=== PATIENT | female | born 1945 | race Caucasian/White ===

== ENCOUNTER 2018-02-07 12:53 | Outpatient (CLI) | payer MEDICARE, OTHER ==
[2018-02-07] MEDS ORDERED: ISOVUE-370 76%-LOCM 1 ML ONE (13:28)
--- NOTE | 2018-02-07 17:43 | CT ---
CT THORAX WITH IV CONTRAST CT ABDOMEN AND PELVIS WITH IV CONTRAST 02/07/18 HISTORY: Ascending colon cancer with rising CEA. COMPARISON: PET CT examination on 06/07/15 as well as a prior CT abdomen and pelvis on 04/19/15. CT THORAX: There has been interval development of a new pulmonary nodule seen in the right upper lobe measuring 1.4 cm (image 26, series 3). No additional discrete pulmonary nodule or mass is seen. There is no ple ural effusion identified. Minimal atelectasis is present at the posterior right lung base. Vascular calcifications are seen in the thoracic aorta and involving the coronary arteries. No medias tinal. hilar or axillary lymphadenopathy is seen. CT ABDOMEN AND PELVIS: Postsurgical changes related to cholecystectomy are noted. There is a bone density lesion seen anterior to the junction of the mid portion and superior pole lef t kidney measuring 1.6 cm which is overall stable in size compared to study in 2015 and appears to ar ise from the left kidney. May represent a small renal cyst. The kidneys otherwise have normal CT columb[place] earance. The liver demonstrates normal sonographic appearance and no hepatic lesion or mass is appreciated. The spleen, pancreas, bilateral adrenal glands, and opacified small bowel demonstrate a normal CT columba earance. There are postsurgical changes related to partial right hemicolectomy. A few colonic diverticula are seen in the sigmoid colon. The uterus is not visualized, likely related to hysterectomy. The urinary bladder is decompressed and not well evaluated. There is prominent spray artifact in the pelvis secondary to the left total hip prosthesis. There is an enlarged aortocaval lymph node measuring 1.6 cm in short axis dimension which is just inf erior to the level of the left renal vein and at the level of the right renal vein. No additional enl arged lymph nodes are seen in the abdomen or pelvis. No free fluid or fluid collection is seen in the abdomen or pelvis. No lytic or sclerotic osseous lesions are identified. IMPRESSION: 1. Interval development of a right upper lobe pulmonary nodule as well as interval development o f an enlarged aortocaval lymph node worrisome for metastatic disease. 2. Remainder of the incidental findings are as described above. POS: [facility]
== END 2018-02-07 12:54 | disposition home or self-care (01) ==
LOC: BICCT 12:53
PROVIDERS: ATTEND Internal Medicine Medical Oncology
DX: C18.2 Malignant neoplasm of ascending colon (principal); R91.1 Solitary pulmonary nodule
CPT/HCPCS: 71260; 74177

== ENCOUNTER 2018-02-13 13:30 | Outpatient (CLI) | payer MEDICARE, OTHER ==
--- NOTE | 2018-02-13 16:59 | PET ---
PET CT FROM SKULL BASE TO MID THIGH: INDICATION: History of colorectal cancer and metastatic disease; new nodules identified within the lung and abdom en. COMPARISON: CT of the chest, abdomen, and pelvis from [facility] dated 02/07/[address] dated 06/07/15. RADIOPHARMACEUTICAL: 11.9 mCi F18-FDG IV. TECHNIQUE: PET CT images were obtained from the skull base to the mid thighs following introduction of a radioph armaceutical IV. CT images were obtained for attenuation correction purposes only. FINDINGS: The biodistribution for the examination appears acceptable. Head/Neck: No hypermetabolic lymphadenopathy or mass is seen within the head and neck region. Thorax: No hypermetabolic pulmonary nodule or pleural effusion is evident. The new pulmonary nodule seen with in the right upper lobe has a peak uptake of 0.99 and a mean uptake of 0.94. There are additional new appearing sub-4 mm pulmonary nodules within the left upper lobe and superior segment of the right lo wer lobe, not seen on the prior PET CT. No hypermetabolic lymphadenopathy is evident within the media stinal, hilar, or axillary regions. Abdomen/Pelvis: The enlarged aortocaval lymph node demonstrates no associated hypermetabolic uptake. The small nodule overlying the anterior left renal bed is stable to the prior PET CT evaluation with no associated hy permetabolic uptake. There is stable postprocedural change of a right hemicolectomy. No hypermetaboli c mass or lymphadenopathy is evident within the abdomen or pelvis. Skin/Osseous Structures: No hypermetabolic skin or osseous lesions identified. IMPRESSION: The new pulmonary nodule involving the right upper lobe, as well as scattered sub-4 mm pulmonary nodu les within the left upper lobe and right lower lobe demonstrate no associated hypermetabolic uptake. No hypermetabolic activity is seen involving the aortocaval lymph node seen within the abdomen nor t he nodule anterior to the left kidney. Findings can be seen with malignancies related to low FDG avid ity. Reactive lymphadenopathy and inflammatory pulmonary nodules are not entirely excluded. A short-t erm CT follow-up utilizing IV contrast of the chest/abdomen/pelvis recommended to document stability. POS: [facility]
== END 2018-02-13 13:31 | disposition home or self-care (01) ==
LOC: PET 13:30
PROVIDERS: ATTEND Internal Medicine Medical Oncology
DX: C18.2 Malignant neoplasm of ascending colon (principal); R91.8 Other nonspecific abnormal finding of lung field
CPT/HCPCS: 78815; A9552

== ENCOUNTER 2018-02-21 10:12 | Inpatient (IN) | payer MEDICARE, OTHER ==
[2018-02-21] MEDS ORDERED: EPINEPHrine 1 MG/ML AMP ONE (10:27)
[2018-02-21] MEDS ORDERED: EPINEPHrine 1 MG/10 ML Abboject SYRINGE ONE (10:27)
[2018-02-21] MEDS ORDERED: methylPREDNISolone Sod Succ/PF 125 MG/2 ML VIAL ONE (10:33)
[2018-02-21] MEDS ORDERED: diphenhydrAMINE 50 MG/ML VIAL ONE (10:36)
[2018-02-21] MEDS ORDERED: diphenhydrAMINE 50 MG/ML VIAL IVP SCH (10:45)
[2018-02-21] MEDS ORDERED: Ondansetron ODT 8 MG TAB ONE (11:34)
[2018-02-21] MEDS ORDERED: Ondansetron PF 4 MG/2 ML Vial ONE (11:49)
--- NOTE | 2018-02-21 11:50 | RAD ---
PORTABLE AP CHEST XRAY: DATE: 04/03/2018. HISTORY: Colon cancer. Dizziness. Post Code Green. COMPARISON: 05/12/[address] scan on 02/13/2018. FINDINGS: There is a pulmonary nodule seen in the right mid lung zone which was seen on the prior PET CT examin ation which has developed in the interim compared to the study in 2016. The previously noted right-s ided MediPort catheter has been removed. There is a patchy density seen at the left lung base which could be related to atelectasis, focal area of pneumonitis, or possibly aspiration. The lungs are ot herwise clear. Cardiac silhouette and pulmonary vasculature are within normal limits. Osseous struc tures appear intact. IMPRESSION: 1. Pulmonary nodule right mid lung zone seen on the recent PET CT exam. 2. Patchy density left lung base which could be related to atelectasis. However, focal pneumonia or aspiration is a possibility. Followup chest x-ray is recommended. POS: [facility]
[2018-02-21 12:48] LABS: Hemoglobin 17.6 g/dL (12.0-16.0); Mean Corpuscular Hemoglobin 29.2 pg (27.0-31.0); Mean Corpuscular Volume 91.2 fL (78.0-98.0); Platelet Count 231 thou/uL (130-400); RBC Distribution Width 12.2 % (11.5-14.5); Red Blood Cell (RBC) Count 6.04 mill/uL (4.20-5.40); White Blood Cell (WBC) Count 26.9 thou/uL (4.8-10.8)
[2018-02-21 12:59] LABS: ALT (SGPT) 35 U/L (8-55); AST (SGOT) 30 U/L (5-34); Albumin 3.5 g/dL (3.4-4.8); Alkaline Phosphatase 118 U/L (40-150); Anion Gap 17 mmol/L (10-20); BUN (Urea Nitrogen) 20 mg/dL (9.8-20.1); Bilirubin, Total 0.4 mg/dL (0.2-1.2); Calc. Creatinine Clearance 0 mL/min (70-130); Calcium 9.2 mg/dL (7.8-10.44); Carbon Dioxide 18 mmol/L (23-31); Chloride 109 mmol/L (98-107); Estimated GFR-MDRD 41; Glucose 244 mg/dL (83-110); Magnesium 1.9 mg/dL (1.6-2.6); Potassium 3.9 mmol/L (3.5-5.1); Protein, Total 6.5 g/dL (6.0-8.3); Sodium 140 mmol/L (136-145)
[2018-02-21 13:04] LABS: Troponin I Less than 0.010 ng/mL (< 0.028)
[2018-02-21 13:05] LABS: Band 27 % (5-11); Lymphocytes 9 % (21-51); MDiff Complete? YES; Neutrophil 59 % (42-75); RBC Morphology Normal; Reactive Lymphocytes 5 % (0-10)
[2018-02-21] MEDS ORDERED: Promethazine HCl 25 MG/ML VIAL ONE (13:13)
[2018-02-21] MEDS ORDERED: Piperacillin/Tazobactam 4.5 GM VIAL ONE (13:55)
[2018-02-21 17:38] LABS: Lactic Acid 2.9 mmol/L (0.5-2.2)
[2018-02-21] MEDS ORDERED: Ondansetron ODT 4 MG TAB PO PRN (17:56)
[2018-02-21] MEDS ORDERED: Ondansetron PF 4 MG/2 ML Vial IVP PRN (17:56)
[2018-02-21] MEDS ORDERED: Acetaminophen 325 MG TAB PO PRN (17:56)
[2018-02-21] MEDS ORDERED: EPINEPHrine 1 MG/ML AMP IM PRN (17:58)
[2018-02-21] MEDS ORDERED: Famotidine 20 MG TAB PO SCH (18:00)
[2018-02-21] MEDS ORDERED: predniSONE 20 MG TAB PO SCH (18:00)
[2018-02-21] MEDS ORDERED: hydrALAZINE 20 MG/ML VIAL SLOW IVP PRN (18:16)
[2018-02-21] MEDS: diphenhydrAMINE 25 MG CAP PO SCH (19:12)
[2018-02-21] MEDS: Sodium Chloride 0.9% 1,000 ML IV SCH (19:13)
--- NOTE | 2018-02-21 19:16 | HP ---
DATE OF ADMISSION: 02/21/2018 PRIMARY CARE PHYSICIAN: Dr. Brooke Chapa. PRIMARY ONCOLOGIST: Dr. Renteria. CHIEF COMPLAINT/REASON FOR ADMISSION: Code green during the MRI. HISTORY OF PRESENT ILLNESS: Patient is a 72-year-old female with colon cancer, status post right hem icolectomy in 2014, presented to the emergency room after a code green during the MRI. The patient underwent a CT scan of the chest, abdomen, and pelvis earlier this month that was consist ent with right upper lobe pulmonary nodules along with enlarged aortocaval lymph nodes worrisome for metastatic disease. Dr. Renteria recommended MRI with contrast to rule out intracranial metastasis. However, patient had anaphylactic reaction during the MRI. The patient had sudden onset of burning sensation to her face and had nausea, vomiting, and several episodes of diarrhea. The MRI staff then attempted to assist her to the bathroom where she had a syncopal episode. She also was short of tiny ath and had some swelling of her face as well. Her blood pressure during the episode was low. She r eceived epinephrine, IV fluids, vancomycin, Zosyn, 125 Solu-Medrol in the emergency room. She felt g enerally weak and fatigued. EKG showed sinus tachycardia with some nonspecific ST-T wave changes. S he was diaphoretic and pale in the emergency room. PAST MEDICAL HISTORY: 1. Hypertension. 2. Colon cancer as discussed above. 3. Gastroesophageal reflux disease. 4. History of pulmonary embolism that developed 10 days after hip replacement. 5. Hyperlipidemia. 6. History of gastrointestinal bleeding. 7. Rheumatoid arthritis followed by Dr. Hernandez. 8. History of shingles. PAST SURGICAL HISTORY: Hysterectomy for menorrhagia at age of 29, cholecystectomy at age of 41, left hip replacement in 2013, laparoscopic partial right hemicolectomy in 04/2015, colonoscopy in 2012 an d 2014, MediPort placement, repeat colonoscopy in 2016. ALLERGIES: Patient is now allergic to GADOLINIUM CONTRAST. CURRENT HOME MEDICATIONS: Per primary care office record: Losartan 50 mg daily if her blood pressur e is more than 140, lovastatin 40 mg daily, Protonix 40 mg daily, Rituxan per Dr. Hernandez. SOCIAL HISTORY: Patient currently lives at home with her family. She is a nonsmoker. Drinks alcoho l socially. No drug use. She makes her own decision with the help of her family. FAMILY HISTORY: Father with hypertension. Mother with stroke, breast cancer runs in her family. REVIEW OF SYSTEMS: The following complete review of systems was negative, unless otherwise mentioned in the HPI or below: Constitutional: Weight loss or gain, ability to conduct usual activities. Sk in: Rash, itching. Eyes: Double vision, pain. ENT/Mouth: Nose bleeding, neck stiffness, pain, te nderness. Cardiovascular: Palpitations, dyspnea on exertion, orthopnea. Respiratory: Shortness of breath, wheezing, cough, hemoptysis, fever or night sweats. Gastrointestinal: Poor appetite, abdom inal pain, heartburn, nausea, vomiting, constipation, or diarrhea. Genitourinary: Urgency, frequenc y, dysuria, nocturia. Musculoskeletal: Pain, swelling. Neurologic/Psychiatric: Anxiety, depressio n. Allergy/Immunologic: Skin rash, bleeding tendency. PHYSICAL EXAMINATION: VITAL SIGNS: In the emergency room showed temperature 97.8, respiration of 31 on admission with puls e rate of 113 and blood pressure of 94/68. GENERAL: A 72-year-old female in no apparent distress, feels better. HEENT: Head atraumatic, normocephalic. Sclerae are anicteric. Moist mucous membrane, no oral lesio n. There was no stridor or tongue swelling. NECK: Supple, no JVD, no carotid bruit. LUNGS: Symmetrical with rales at the right base. No wheezing. HEART: S1, S2 present. Regular rate and rhythm. No rubs or gallops appreciated. ABDOMEN: Soft, nontender, bowel sounds present. EXTREMITIES: No edema or calf tenderness. NEUROLOGIC: Grossly nonfocal, moves all four extremities. PSYCHIATRY: Alert, awake, oriented x3. SKIN: Warm and dry. LYMPH NODES: No palpable lymph nodes in the neck. PERIPHERAL VASCULAR: Radial pulses palpable bilaterally. MUSCULOSKELETAL: No joint swelling or tenderness. LABORATORY FINDINGS: CBC showed WBC 26.9, hemoglobin 17.6, hematocrit 55.1, platelet count 231, 27% bandemia. Chemistry showed sodium 140, potassium 3.9, chloride 109, bicarbonate 18, BUN 20, creatini ne 1.29, glucose 244. Lactic acid 4.7. EKG by my review as discussed above. Chest x-ray by my revi ew showed some questionable bibasilar infiltrate. EKG by my review as discussed above. IMPRESSION: 1. Anaphylactic reaction to gadolinium responded to epinephrine H1 and H2 blockers. 2. Sepsis with acute organ dysfunction, probably secondary to aspiration pneumonia. 3. Hypertension. 4. Colon cancer. 5. Obesity with a BMI of 39. 6. Hyperglycemia, rule out diabetes mellitus type 2. 7. Hyperlipidemia. 8. History of pulmonary embolism. 9. History of gastrointestinal bleeding. 10. Gastroesophageal reflux disease. 11. Rheumatoid arthritis. 12. Lactic acidosis. 13. Acute kidney injury on chronic kidney disease stage 2. PLAN: The patient will be monitored in the telemetry unit. We will continue H1 and H2 blockers. Co ntinue steroids. Nebulizer treatment as needed. Zosyn 3.375 grams q.6 hourly. Gentle intravenous h ydration. A.m. labs. Epinephrine p.r.n. We will check hemoglobin A1c. Repeat chest x-ray after 24 hours. Plan of care was discussed with the patient in detail. She stated understanding.
[2018-02-21 19:22] LABS: Troponin I 0.044 ng/mL (< 0.028)
[2018-02-21] MEDS: Piperacillin/Tazobactam 3.375 GM in Sodium Chloride 0.9% 100 ML IVPB SCH (20:33)
[2018-02-22] MEDS: Piperacillin/Tazobactam 3.375 GM in Sodium Chloride 0.9% 100 ML IVPB SCH ×4 (02:02→20:20)
[2018-02-22] MEDS: diphenhydrAMINE 25 MG CAP PO SCH ×3 (02:02→17:30)
[2018-02-22] MEDS: Sodium Chloride 0.9% 1,000 ML IV SCH ×2 (03:39→20:19)
[2018-02-22 05:27] LABS: Lactic Acid 1.5 mmol/L (0.5-2.2)
[2018-02-22 05:34] LABS: Hemoglobin A1c 5.3 % (4.0-6.0)
[2018-02-22 05:35] LABS: Anion Gap 12 mmol/L (10-20); BUN (Urea Nitrogen) 33 mg/dL (9.8-20.1); Calc. Creatinine Clearance 50 mL/min (70-130); Calcium 8.3 mg/dL (7.8-10.44); Carbon Dioxide 19 mmol/L (23-31); Chloride 111 mmol/L (98-107); Estimated GFR-MDRD 28; Glucose 154 mg/dL (83-110); Magnesium 1.6 mg/dL (1.6-2.6); Potassium 4.1 mmol/L (3.5-5.1); Sodium 138 mmol/L (136-145)
[2018-02-22 05:36] LABS: Troponin I 0.081 ng/mL (< 0.028)
[2018-02-22 05:37] LABS: #Monocytes 0.8 thou/uL (0.11-0.59); #Neutrophils 17.3 thou/uL (1.40-6.50); %Basophils 0.1 % (0.0-1.0); %Eosinophils 0.2 % (0.0-10.0); %Lymphocytes 5.2 % (21.0-51.0); %Neutrophils 90.6 % (42.0-75.0); Mean Corpuscular Hemoglobin 29.7 pg (27.0-31.0); Mean Corpuscular Volume 90.2 fL (78.0-98.0); Mean Platelet Volume 9.3 fL (7.4-10.4); Platelet Count 165 thou/uL (130-400); Red Blood Cell (RBC) Count 4.37 mill/uL (4.20-5.40)
[2018-02-22] MEDS: predniSONE 20 MG TAB PO SCH (08:34)
[2018-02-22] MEDS: Saccharomyces boulardii 250 MG CAP PO SCH (08:34)
[2018-02-22] MEDS: Famotidine 20 MG TAB PO SCH ×2 (08:35→20:20)
[2018-02-22] MEDS ORDERED: Enoxaparin Sodium 40 MG/0.4 ML SYRINGE SC SCH (09:00)
[2018-02-22 13:57] VITALS: BMI 39.9
--- NOTE | 2018-02-22 19:34 | PDOC.PN ---
- Subjective Encounter Start Date: 02/22/18 Encounter Start Time: 14:00 Patient seen and examined for Sepsis/Anaphylaxis. No CP/wheezing/ rash. Feels gen weak. No other complaints. No overnight events - Objective Resuscitation Status: Resuscitation Status FULL:Full Resuscitation MAR Reviewed: Yes Vital Signs & Weight: Vital Signs (12 hours) Temp Pulse Resp BP Pulse Ox 02/22/18 18:06 98 F 67 16 118/59 L 97 02/22/18 15:15 98.3 F 70 16 142/63 H 97 02/22/18 11:37 98.2 F 67 16 128/60 96 02/22/18 07:45 97.9 F 69 18 136/69 95 Weight Admit Weight 247 lb 4.8 oz Weight 247 lb 4.8 oz I&O: 02/21/18 02/22/18 02/23/18 06:59 06:59 06:59 Intake Total 1320 1608 Output Total 250 400 Balance 1070 1208 Result Diagrams: 02/22/18 04:36 02/22/18 04:36 EKG Reviewed by me: Yes (Tele SR) Phys Exam - Physical Examination Constitutional: NAD Respiratory: no wheezing, no rhonchi Scat rales at bases Cardiovascular: RRR, no rub Gastrointestinal: soft, positive bowel sounds Musculoskeletal: no edema Neurological: moves all 4 limbs Dx/Plan - Plan DVT proph w/SCDs IMPRESSION: 1. Anaphylactic reaction to gadolinium responded to epinephrine H1 and H2 blockers. 2. Sepsis with acute organ dysfunction, probably secondary to aspiration pneumonia. 3. Hypertension. 4. Acute kidney injury on chronic kidney disease stage 2. 5. Obesity with a BMI of 39. 6. Hyperglycemia - stress induced. A1c normal. 7. Hyperlipidemia. 8. History of pulmonary embolism. 9. History of gastrointestinal bleeding. 10. Gastroesophageal reflux disease. 11. Rheumatoid arthritis. 12. Lactic acidosis. 13. Colon cancer. PLAN: Cont Zosyn Cont Prednisone with antihistamine Repeat CXR in AM Cont other meds as below Resume Amlodipine BEAN on hold due to BIANCA AM labs Review of Systems - Review of Systems Respiratory: negative: Cough, Dry, Shortness of Breath, Hemoptysis, SOB with Excertion, Pleuritic Pain, Sputum, Wheezing Cardiovascular: negative: chest pain, palpitations, orthopnea, paroxysmal nocturnal dyspnea, edema, light headedness, other - Medications/Allergies Allergies/Adverse Reactions: Allergies Allergy/AdvReac Type Severity Reaction Status Date / Time iodine Allergy Severe Anaphylaxis Verified 02/21/18 23:02 Iodine and Iodide Containing Allergy Severe Anaphylaxis Verified 02/21/18 23:02 Produc Gadolinium-Containing AdvReac Intermediate Nausea Verified 02/21/18 20:28 Contrast Medi Medications: Current Medications Acetaminophen (Tylenol) 650 mg PO Q4H PRN PRN Reason: Headache/Fever/Mild Pain (1-3) Albuterol/Ipratropium (Duoneb) 3 ml NEB [id number] PRN PRN Reason: SOB &/or Wheezing Amlodipine Besylate (Norvasc) 5 mg PO DAILY [facility] Diphenhydramine HCl (Benadryl) 25 mg PO Q8H [facility] Last Admin: 02/22/18 17:30 Dose: 25 mg Epinephrine (Epinephrine) 0.3 mg IM Q5M PRN PRN Reason: anaphylaxis Famotidine (Pepcid) 20 mg PO BID [facility] Last Admin: 02/22/18 08:35 Dose: 20 mg Hydralazine HCl (Apresoline) 10 mg SLOW IVP Q4H PRN PRN Reason: SBP Greater Than 180 Sodium Chloride (Normal Saline 0.9%) 1,000 mls @ 70 mls/hr IV .[id number] [facility] Last Admin: 02/22/18 03:39 Dose: 1,000 mls Piperacillin Sod/Tazobactam (Sod 3.375 gm/ Sodium Chloride) 100 mls @ 200 mls/ hr IVPB 0200,0800,1400,2000 [facility] Last Admin: 02/22/18 14:08 Dose: 100 mls Miscellaneous Medication (Pharmacy To Dose) 1 each IVPB ONE PRN PRN Reason: Pharmacy to dose Non-Formulary Medication (Lovastatin [Lovastatin]) 40 mg PO QAM [facility] Ondansetron HCl (Zofran Odt) 4 mg PO Q6H PRN PRN Reason: Nausea/Vomiting Ondansetron HCl (Zofran) 4 mg IVP Q6H PRN PRN Reason: Nausea/Vomiting Prednisone (Prednisone) 20 mg PO QAM-WM [facility] Last Admin: 02/22/18 08:34 Dose: 20 mg Saccharomyces Boulardii (Florastor) 250 mg PO DAILY [facility] Last Admin: 02/22/18 08:34 Dose: 250 mg Sodium Chloride (Flush - Normal Saline) 10 ml IVF Q12HR [facility] Last Admin: 02/22/18 08:35 Dose: Not Given Sodium Chloride (Flush - Normal Saline) 10 ml IVF PRN PRN PRN Reason: Saline Flush
[2018-02-23] MEDS: diphenhydrAMINE 25 MG CAP PO SCH ×2 (02:27→09:25)
[2018-02-23] MEDS: Piperacillin/Tazobactam 3.375 GM in Sodium Chloride 0.9% 100 ML IVPB SCH ×2 (02:28→08:31)
[2018-02-23 04:24] LABS: #Lymphocytes 1.4 thou/uL (1.20-3.40); #Monocytes 1.1 thou/uL (0.11-0.59); #Neutrophils 12.3 thou/uL (1.40-6.50); %Eosinophils 0.2 % (0.0-10.0); %Lymphocytes 9.2 % (21.0-51.0); %Monocytes 7.6 % (0.0-10.0); %Neutrophils 83.1 % (42.0-75.0); Hemoglobin 10.5 g/dL (12.0-16.0); Mean Corpuscular HGB CONC 33.5 g/dL (32.0-36.0); Mean Corpuscular Hemoglobin 30.3 pg (27.0-31.0); Mean Corpuscular Volume 90.5 fL (78.0-98.0); Mean Platelet Volume 8.6 fL (7.4-10.4); Platelet Count 148 thou/uL (130-400); RBC Distribution Width 11.9 % (11.5-14.5); Red Blood Cell (RBC) Count 3.47 mill/uL (4.20-5.40); White Blood Cell (WBC) Count 14.9 thou/uL (4.8-10.8)
[2018-02-23 04:37] LABS: Anion Gap 7 mmol/L (10-20); BUN (Urea Nitrogen) 31 mg/dL (9.8-20.1); Calc. Creatinine Clearance 66 mL/min (70-130); Calcium 8.7 mg/dL (7.8-10.44); Carbon Dioxide 24 mmol/L (23-31); Chloride 115 mmol/L (98-107); Estimated GFR-MDRD 38; Glucose 102 mg/dL (83-110); Magnesium 1.9 mg/dL (1.6-2.6); Potassium 3.9 mmol/L (3.5-5.1); Sodium 142 mmol/L (136-145)
--- NOTE | 2018-02-23 08:30 | EKG ---
Test Reason : Blood Pressure : / mmHG Vent. Rate : 117 BPM Atrial Rate : 117 BPM P-R Int : 148 ms QRS Dur : 080 ms QT Int : 330 ms P-R-T Axes : 056 023 056 degrees QTc Int : 460 ms Sinus tachycardia Nonspecific ST abnormality Abnormal ECG Confirmed by CYNDI BAR ([id number]) on 02/23/2018 8:29:48 AM Referred By: Confirmed By:CYNDI BAR
[2018-02-23] MEDS: predniSONE 20 MG TAB PO SCH (08:31)
[2018-02-23] MEDS: Famotidine 20 MG TAB PO SCH (08:31)
[2018-02-23] MEDS: Saccharomyces boulardii 250 MG CAP PO SCH (08:31)
[2018-02-23] MEDS ORDERED: Lovastatin 20 MG TAB PO SCH (09:00)
[2018-02-23] MEDS ORDERED: Amlodipine 5 MG TAB PO SCH (09:00)
[2018-02-23 11:58] VITALS: BP 137/64; TEMP 98.1
--- NOTE | 2018-02-23 12:04 | RAD ---
TWO VIEW CHEST SERIES: CLINICAL HISTORY: Aspiration pneumonia. COMPARISON: Reference is made to 02/21/2018 exam. FINDINGS: There is a stable nodule of the right mid lung. The chest is otherwise similar in appearance. IMPRESSION: 1. Persistence of a previously demonstrated left basilar opacity which may be on the basis of pneumo nitis. 2. Redemonstration of right pulmonary nodule. POS: [facility]
[2018-02-23] MEDS ORDERED: Amoxicillin/Potassium Clav 875 MG TAB PO SCH (21:00)
--- NOTE | 2018-02-24 10:50 | DIS ---
DATE OF DISCHARGE: 02/23/2018 DISCHARGE DISPOSITION: Home. FOLLOWUP: Follow up with primary care physician, Brooke Chapa, in 1 week. Chest x-ray after 4-6 weeks. Primary care physician advised to follow. The patient was seen and examined on the day of discharge, denies any new complaints, no chest pain, shortness of breath or palpitations. BRIEF HOSPITAL COURSE: The patient is a 72-year-old female with colon cancer, status post right jonathan colectomy in 2014, currently followed by Dr. Renteria presented to the emergency room after an anaphy lactic reaction during the MRI. The patient received H1 blockers, H2 blockers as well as epinephrine intramuscularly after which her blood pressure improved. Please refer to the history and physical f or further details. The patient was admitted to the hospital with a diagnosis of anaphylactic reaction secondary to Gadol inium that responded to epinephrine H1 and H2 sandie. She also had nausea and vomiting along with a ltered mentation during the above episode. She probably developed aspiration pneumonitis. Her WBC c ount on admission was 27,000 with 27% bandemia. Chest x-ray showed patchy density at the left base. She was started on Zosyn, that has been changed to Augmentin. Blood culture 1 of 2 shows gram posit brooke migdalia, probably contamination. Primary care physician advised to follow up on the final cultures. Repeat chest x-ray on the day of discharge did not show any new changes. She also had mild acute ki dney injury, probably secondary to hypoperfusion that has improved on the day of discharge. She was advised to hold losartan/HCTZ for 1 more day. She appears stable for discharge. FINAL DIAGNOSES: 1. Anaphylactic reaction to the GADOLINIUM. 2. Sepsis with acute organ dysfunction, probably secondary to aspiration pneumonia. 3. Hypertension. 4. Acute kidney injury on chronic kidney disease stage 2, improved. Creatinine on the day of discha rge is 1.36. 5. Morbid obesity with a BMI of 40.7. 6. Hyperglycemia, probably stress induced. A1c was normal. 7. Hyperlipidemia. 8. History of pulmonary embolism. 9. Lung nodule. 10. History of gastrointestinal bleeding. 11. Gastroesophageal reflux disease. 12. Rheumatoid arthritis. 13. Lactic acidosis, improved. 14. Colon cancer. 15. Elevated troponin's probably secondary to demand ischemia. Plan of care was discussed with the patient in detail. She stated understanding. An echocardiogram as outpatient would be beneficial Primary care physician is advised to follow.
== END 2018-02-23 13:55 | disposition home or self-care (01) | DRG 915 ==
LOC: ERS 10:12 → 2NO 13:36 → ONC 02-22 17:49
PROVIDERS: ADMIT Internal Medicine; ATTEND Internal Medicine
DX: T88.6XXA Anaphylactic reaction due to adverse effect of correct drug or medicament properly administered, initial encounter (principal); A41.9 Sepsis, unspecified organism; J69.0 Pneumonitis due to inhalation of food and vomit; C18.9 Malignant neoplasm of colon, unspecified; Z68.41 Body mass index [BMI] 40.0-44.9, adult; N17.9 Acute kidney failure, unspecified; E87.2 Acidosis; T50.995A Adverse effect of other drugs, medicaments and biological substances, initial encounter; Y65.8 Other specified misadventures during surgical and medical care; Y78.8 Miscellaneous radiological devices associated with adverse incidents, not elsewhere classified; Y92.238 Other place in hospital as the place of occurrence of the external cause; I10 Essential (primary) hypertension; K21.9 Gastro-esophageal reflux disease without esophagitis; Z86.711 Personal history of pulmonary embolism; E78.5 Hyperlipidemia, unspecified; M06.9 Rheumatoid arthritis, unspecified; B02.9 Zoster without complications; E66.9 Obesity, unspecified; I12.9 Hypertensive chronic kidney disease with stage 1 through stage 4 chronic kidney disease, or unspecified chronic kidney disease; N18.2 Chronic kidney disease, stage 2 (mild)
CPT/HCPCS: 36415; 71045; 71046; 80048; 80053; 83036; 83605; 83735; 84484; 85025; 87040; 93005; 96361; 96365; 96367; 96372; 96375; J0171; J1200; J1650; J2405; J2543; J2550; J2930; J3370; J7050; J7506

== ENCOUNTER 2018-03-10 13:09 | Outpatient (CLI) | payer MEDICARE, OTHER ==
[2018-03-10 14:11] LABS: #Eosinphils 0.1 thou/uL (0.0-0.7); #Lymphocytes 1.9 thou/uL (1.20-3.40); #Monocytes 0.8 thou/uL (0.11-0.59); #Neutrophils 6.3 thou/uL (1.40-6.50); %Basophils 0.3 % (0.0-1.0); %Eosinophils 1.4 % (0.0-10.0); %Lymphocytes 20.9 % (21.0-51.0); %Monocytes 8.4 % (0.0-10.0); %Neutrophils 69.1 % (42.0-75.0); Hemoglobin 12.1 g/dL (12.0-16.0); Mean Corpuscular Volume 90.7 fL (78.0-98.0); Mean Platelet Volume 8.6 fL (7.4-10.4); Platelet Count 262 thou/uL (130-400); RBC Distribution Width 11.6 % (11.5-14.5); Red Blood Cell (RBC) Count 4.15 mill/uL (4.20-5.40); White Blood Cell (WBC) Count 9.2 thou/uL (4.8-10.8)
[2018-03-10 14:37] LABS: Anion Gap 9 mmol/L (10-20); BUN (Urea Nitrogen) 22 mg/dL (9.8-20.1); Calc. Creatinine Clearance 0 mL/min (70-130); Carbon Dioxide 31 mmol/L (23-31); Chloride 101 mmol/L (98-107); Estimated GFR-MDRD 30; Glucose 126 mg/dL (83-110); Potassium 3.7 mmol/L (3.5-5.1); Sodium 137 mmol/L (136-145)
--- NOTE | 2018-03-10 17:00 | EKG ---
Test Reason : Blood Pressure : / mmHG Vent. Rate : 058 BPM Atrial Rate : 058 BPM P-R Int : 188 ms QRS Dur : 088 ms QT Int : 422 ms P-R-T Axes : -09 006 054 degrees QTc Int : 414 ms Poor data quality, interpretation may be adversely affected Sinus bradycardia Low voltage QRS Borderline ECG When compared with ECG of 21-FEB-2018 10:16, Vent. rate has decreased BY 59 BPM Non-specific change in ST segment in Inferior leads Confirmed by DR. Layla KABA ([id number]) on 03/10/2018 5:00:23 PM Referred By: MARIELENA Confirmed By:DR. Layla KABA
== END 2018-03-10 13:10 | disposition home or self-care (01) ==
LOC: LABBT 13:09
PROVIDERS: ATTEND Specialist
DX: Z01.818 Encounter for other preprocedural examination (principal); C18.9 Malignant neoplasm of colon, unspecified; C77.1 Secondary and unspecified malignant neoplasm of intrathoracic lymph nodes; R00.1 Bradycardia, unspecified
CPT/HCPCS: 80048; 85025; 93005; 93010

== ENCOUNTER 2018-03-11 10:19 | Day surgery (SDC) | payer MEDICARE, OTHER ==
[2018-03-11] MEDS ORDERED: Ketorolac Tromethamine 30 MG/ML VIAL ONE (10:56)
[2018-03-11] MEDS ORDERED: Isosulfan Blue 50 MG/5 ML VIAL ONE (12:56)
[2018-03-11] MEDS ORDERED: Bupivacaine/Epinephrine 0.25% 30 ML VIAL ONE ×2 (12:56→15:36)
[2018-03-11] MEDS ORDERED: Lidocaine 2% PF 5 ML VIAL ONE (12:56)
[2018-03-11] MEDS ORDERED: CEFAZOLIN 2 GM/50 ML BAG ONE (14:00)
[2018-03-11] MEDS ORDERED: Lidocaine 1% (PF) 30 ML VIAL ONE (15:36)
[2018-03-11] MEDS ORDERED: Fentanyl 100 MCG/2 ML VIAL ONE (15:45)
[2018-03-11] MEDS ORDERED: Lidocaine 1% PF 5 ML VIAL ONE (16:13)
--- NOTE | 2018-03-11 18:24 | RAD ---
PORTABLE CHEST ONE VIEW: 03/11/18 HISTORY: 72-year-old female with history of post Mediport insertion. Left subclavian catheter and injection port are placed. No pneumothorax or pleural effusion. Approxim ately 1.4 cm diameter nodular overlying the right mid lung zone. IMPRESSION: No pneumothorax or pleural effusion following subclavian catheter and Mediport placement. 1.4 cm diam eter stable appearing right mid lung nodule since 02/23/18. POS: [facility]
--- NOTE | 2018-03-12 14:48 | OP ---
DATE OF OPERATION: 03/11/2018 PREOPERATIVE DIAGNOSIS: Metastatic colon cancer. POSTOPERATIVE DIAGNOSIS: Metastatic colon cancer. OPERATION PERFORMED: Placement of left subclavian standard size power compatible MediPort. SURGEON: Hero Fabian M.D. ANESTHESIA: Total intravenous anesthesia with local using 0.25% Marcaine with epinephrine. INDICATIONS: The patient is a 72-year-old obese white female. She had previously undergone surgical treatment of colon cancer and had a prior right subclavian MediPort. She was recently found to have metastatic colon cancer and additional chemotherapy is necessary. She returns at this time for plac ement of another MediPort. I have recommended placement in the left subclavian location. DESCRIPTION OF OPERATION: Informed consent was obtained. The patient was taken to the operating chester m where total intravenous anesthesia was obtained with the patient in supine position. Left periclav icular area was prepped with ChloraPrep and draped in sterile fashion. Local anesthetic was infiltra aylin and a large gauge needle was passed under the clavicle in the subclavian vein. Guidewire was pas sed through the needle and fluoroscopically confirmed to enter the superior vena cava. Additional lo vasyl anesthetic was infiltrated and transverse incision was created based on needle insertion site. A subcutaneous pocket was dissected inferiorly. Introducer dilator was passed over the guidewire unde r fluoroscopic guidance. The guidewire and dilator were removed, and the catheter was passed through the introducer. The tip of the catheter was positioned at the atriocaval junction and the catheter was trimmed to the appropriate length and secured to the locking hub of the MediPort. The port was t hen placed in the subcutaneous pocket where it was secured to the pectoral fascia with 2 interrupted sutures of 3-0 Prolene. The incision was then closed in layers with 3-0 and 4-0 Monocryl. Additiona l local anesthetic was infiltrated. The port was cannulated with a Valenzuela needle and it aspirated blo od freely and was flushed with heparinized saline. Dermabond was placed externally on the skin incis ion. There were no complications. Blood loss was negligible. The patient tolerated the procedure w ell and was taken to recovery room in stable condition. FINDINGS: The patient had typical anatomy. Her port was placed uneventfully and fluoroscopically co nfirmed during and after placement. A standard size port was selected and it was placed in the left subclavian vein. There were no complications, essentially no blood loss. The patient tolerated the procedure well and was taken to recovery room in stable condition.
== END 2018-03-11 17:35 | disposition home or self-care (01) ==
LOC: SDC 10:19
PROVIDERS: ATTEND Specialist
PROC: 0JH63WZ Insertion of Totally Implantable Vascular Access Device into Chest Subcutaneous Tissue and Fascia, Percutaneous Approach (ICD-10-PCS; principal; 2018-03-11)
DX: C18.9 Malignant neoplasm of colon, unspecified (principal); C77.1 Secondary and unspecified malignant neoplasm of intrathoracic lymph nodes; I10 Essential (primary) hypertension; E78.5 Hyperlipidemia, unspecified; K21.9 Gastro-esophageal reflux disease without esophagitis; M06.9 Rheumatoid arthritis, unspecified; E66.9 Obesity, unspecified; Z68.38 Body mass index [BMI] 38.0-38.9, adult; Z86.711 Personal history of pulmonary embolism; Z79.52 Long term (current) use of systemic steroids; Z79.899 Other long term (current) drug therapy; Z91.041 Radiographic dye allergy status; Z90.49 Acquired absence of other specified parts of digestive tract
CPT/HCPCS: 36561; 71045; 76000; C1788; Q9968; J0131; J1642; J1885; J2001; J3010

== ENCOUNTER 2018-05-22 13:04 | Emergency (ER) | payer MEDICARE, OTHER ==
[2018-05-22 14:37] LABS: #Basophils 0.1 thou/uL (0.0-0.2); #Eosinphils 0.1 thou/uL (0.0-0.7); #Lymphocytes 1.9 thou/uL (1.20-3.40); #Neutrophils 6.3 thou/uL (1.40-6.50); %Basophils 0.9 % (0.0-1.0); %Eosinophils 1.3 % (0.0-10.0); %Lymphocytes 19.9 % (21.0-51.0); %Monocytes 10.4 % (0.0-10.0); %Neutrophils 67.5 % (42.0-75.0); Hemoglobin 12.3 g/dL (12.0-16.0); Mean Corpuscular HGB CONC 31.5 g/dL (32.0-36.0); Mean Corpuscular Hemoglobin 27.8 pg (27.0-31.0); Mean Corpuscular Volume 88.2 fL (78.0-98.0); Mean Platelet Volume 8.1 fL (7.4-10.4); Platelet Count 297 thou/uL (130-400); RBC Distribution Width 11.8 % (11.5-14.5); Red Blood Cell (RBC) Count 4.44 mill/uL (4.20-5.40); White Blood Cell (WBC) Count 9.4 thou/uL (4.8-10.8)
[2018-05-22 14:58] LABS: ALT (SGPT) 19 U/L (8-55); AST (SGOT) 20 U/L (5-34); Albumin 4.2 g/dL (3.4-4.8); Alkaline Phosphatase 84 U/L (40-150); Anion Gap 16 mmol/L (10-20); BUN (Urea Nitrogen) 8 mg/dL (9.8-20.1); Bilirubin, Total 0.3 mg/dL (0.2-1.2); Calc. Creatinine Clearance 0 mL/min (70-130); Calcium 9.9 mg/dL (7.8-10.44); Carbon Dioxide 22 mmol/L (23-31); Chloride 106 mmol/L (98-107); Estimated GFR-MDRD 56; Glucose 106 mg/dL (83-110); Potassium 3.5 mmol/L (3.5-5.1); Protein, Total 7.2 g/dL (6.0-8.3); Sodium 140 mmol/L (136-145)
== END 2018-05-22 15:47 | disposition left against medical advice (07) ==
LOC: ERS 13:04
DX: Z53.21 Procedure and treatment not carried out due to patient leaving prior to being seen by health care provider (principal)
CPT/HCPCS: 36415; 80053; 85025

== ENCOUNTER 2018-08-12 08:42 | Outpatient (CLI) | payer MEDICARE, OTHER ==
--- NOTE | 2018-08-12 10:11 | CT ---
CT Chest Abd Pelvis W Con History: [Colon cancer. Metastatic disease.] Comparison: CT chest abdomen and pelvis February 2018 Findings: The right upper lobe pulmonary nodule now measures 15-16 mm, previously 14 mm, similar give n the difference in slice selection. There is a 3 mm nodule within the right middle lobe axial image 29, unchanged. There is a 3 mm nodule left lower lobe axial image 26, unchanged. 3 mm nodule left lower lobe axial image 25, unchanged. 3 to 4 mm nodule medial basal left lower lobe axial image 28, unchanged. No new suspicious pulmonary no dule. 3 to 4 mm nodule anterior segment left upper lobe, unchanged. No effusion. No pneumothorax. No mediastinal adenopathy. No pericardial effusion. The thyroid is unremarkable. The axillae are without adenopathy. The spleen is unremarkable. Liver is unremarkable. Prior cholecystectomy. There is a hypodense aortoc aval lymph nodes axial image 68 which measures 13 mm in short axis, unchanged. There are no dilated loops of large or small bowel. No free intraperitoneal gas or fluid. No new retr operitoneal lymph nodes. Hepatic hypodensity, exophytic, interpolar anterior cortex left kidney is un changed. Adrenal glands are normal. Pancreas is unremarkable. No suspicious osteolytic or osteoblastic lesion. No displaced rib fracture. The sternum and manubrium are intact Impression: Unchanged aortocaval lymph nodes as well as pulmonary nodules. No evidence for disease pr ogression. Findings indicate stable disease.
[2018-08-12] MEDS ORDERED: Iopamidol 370 76% 100 ML VIAL ONE (16:49)
== END 2018-08-12 08:43 | disposition home or self-care (01) ==
LOC: CT 08:42
PROVIDERS: ATTEND Internal Medicine Medical Oncology
DX: C18.2 Malignant neoplasm of ascending colon (principal); R91.1 Solitary pulmonary nodule; R59.0 Localized enlarged lymph nodes; D50.9 Iron deficiency anemia, unspecified; D70.1 Agranulocytosis secondary to cancer chemotherapy; C79.9 Secondary malignant neoplasm of unspecified site
CPT/HCPCS: 71260; 74177; 82565; Q9967

== ENCOUNTER 2018-11-17 09:13 | Outpatient (CLI) | payer MEDICARE, OTHER ==
--- NOTE | 2018-11-17 12:11 | CT ---
CT chest with IV contrast CT abdomen and pelvis with IV contrast HISTORY: Colon cancer. Pulmonary nodule. Restaging. COMPARISON: 08/12/2018, 02/07/2018, and 06/07/2015. FINDINGS: The dominant noncalcified well-circumscribed 1.6 cm nodule within the right upper lobe is s table. The subpleural 0.4 cm nodule at the lateral aspect of the left upper lobe is unchanged in appearance. The 2 adjacent 0.2 cm nodules within the left lower lobe are stable. Mild atelectasis at the lung bases. No pleural fluid or mediastinal adenopathy. Left subclavian Port-A-Cath in place. Calcification in the arterial structures. The tiny calcification along the right posterolateral aspec t of the central spinal canal at the T11 level may represent a small meningioma and is stable. The gallbladder is surgically absent. Small oval exophytic cyst projecting anteriorly from the cortex of the left kidney is stable. A well-circumscribed oval low density aortocaval lymph node is stable in size and appearance compared to the previous study, measuring 1.6 cm in depth (3.4 cm lengt h is stable). No newly enlarged lymph nodes are apparent. Urinary bladder incompletely distended. Left hip prosthesis in place. Degenerative changes lumbar spine. IMPRESSION: Stable CT appearance of the low-density aortocaval lymph node and left lung nodules. No n ew abnormalities. Atherosclerosis.
[2018-11-17] MEDS ORDERED: Iopamidol 370 76% 100 ML VIAL ONE (13:41)
== END 2018-11-17 09:14 | disposition home or self-care (01) ==
LOC: CT 09:13
PROVIDERS: ATTEND Internal Medicine Medical Oncology
DX: C18.9 Malignant neoplasm of colon, unspecified (principal); C79.9 Secondary malignant neoplasm of unspecified site; R59.0 Localized enlarged lymph nodes; R91.8 Other nonspecific abnormal finding of lung field; I70.90 Unspecified atherosclerosis
CPT/HCPCS: 36415; 71260; 74177; 80053; 82248; 83615; 84100; 84436; 84443; 84550; Q9967

== ENCOUNTER 2019-03-16 10:24 | Outpatient (CLI) | payer MEDICARE, OTHER ==
[~2019-03-16 10:24] MED LIST: Iopamidol 370 76% 100 ML VIAL ONE
--- NOTE | 2019-03-16 12:04 | CT ---
CT OF THE CHEST AND ABDOMEN AND PELVIS: DATE: 03/16/2019. COMPARISON: 11/17/2018. TECHNIQUE: Axial CT imaging at 5 mm intervals from the thoracic inlet through the pubic symphysis with IV and or al contrast. Coronal and sagittal reformatted imaging of the chest, abdomen, and pelvis provided. FINDINGS: Left-sided Port-A-Cath in place. No axillary lymphadenopathy. Coronary arterial calcification noted. No mediastinal or hilar lymphadenopathy is evident. There is a nodule in the right upper lobe measuring 1.5 cm in AP dimension, unchanged. There is a rig ht middle lobe nodule on axial image 29 measuring 4 mm, stable when compared to the prior study. There is a 5 mm nodule in the left upper lobe on axial image 14, unchanged when compared to the prior examination. 2 tiny subcentimeter pulmonary nodules are noted within the left lower lobe on images 27 and 28 respectively, also stable when compared to the prior examination. The osseous structures of the chest demonstrate no acute findings. There is scattered atherosclerotic calcification of the aortic arch, the descending thoracic aorta, and the proximal great vessels. No free intraperitoneal air or fluid. The liver, spleen, and pancreas are unremarkable. Gallbladder is surgically absent. Adrenal glands an d kidneys demonstrate no acute findings. There is a stable small exophytic hypodense lesion emanating from the upper pole of the left kidney anteriorly suggesting a small cyst, measuring approx imately 1.5 cm. No evidence for bowel inflammatory change or bowel obstruction is seen. In the aortocaval region on axial image 71 there is a 1.5 cm lymph node which does not appear signifi cantly changed when compared to prior imaging. No additional lymphadenopathy is noted within the retroperitoneum. Uterus appears surgically absent. There is scattered atherosclerotic calcification of the abdominal aorta and its branches. Review of the osseous structures of the abdomen/pelvis demonstrates a hip prosthesis on the left. No worrisome lytic or blastic bone lesion noted within the abdomen/pelvis. Multilevel mild lower lumbar spine facet hypertrophic change. IMPRESSION: Stable pulmonary nodules. Stable aortocaval enlarged lymph node. No significant interval change when compared to the 11/17/2018 examination. Transcribed Date/Time: 03/16/2019 12:24 PM
== END 2019-03-16 10:25 | disposition home or self-care (01) ==
LOC: CT 10:24
PROVIDERS: ATTEND Internal Medicine Medical Oncology
DX: C18.2 Malignant neoplasm of ascending colon (principal); C78.02 Secondary malignant neoplasm of left lung; C77.2 Secondary and unspecified malignant neoplasm of intra-abdominal lymph nodes; R91.8 Other nonspecific abnormal finding of lung field
CPT/HCPCS: 71260; 74177; Q9967

== ENCOUNTER 2019-10-20 08:33 | Outpatient (CLI) | payer MEDICARE, OTHER ==
[2019-10-20] MEDS ORDERED: Iopamidol 370 76% 100 ML VIAL ONE (09:31)
--- NOTE | 2019-10-20 10:48 | CT ---
CT THORAX WITH CONTRAST CT ABDOMEN WITH CONTRAST CT PELVIS WITH CONTRAST: DATE: 10/20/2019 HISTORY: 73-year-old female with colon cancer. Follow-up pulmonary nodules and enlarged retroperitoneal lymph node. TECHNIQUE: IV iodinated contrast media: Administered Oral contrast media: Administered. Single phase scans of thorax, abdomen, and pelvis. COMPARISON: 03/16/2019 FINDINGS: In the anterior segment of the right upper lobe, there is an approximately 1.6 x 1.6 x 1.4 cm noncalc ified round pulmonary nodule abutting the minor fissure. Allowing for slight differences in cursor placement, this has not significantly changed since 03/16/2019. It is minimally larger compared to . Tiny 0.5 cm noncalcified pulmonary nodule at apicoposterior segment of left upper lobe, close to left anterolateral pleural surface, unchanged since 03/16/2019 and 02/07/2018. Tiny 0.4 cm noncalcified pulmonary nodule at right middle lobe, unchanged since 03/16/2019 and 018. No mediastinal or hilar lymphadenopathy. Atherosclerotic calcific patient without aneurysm of thoraci c aorta. No consolidation, pleural effusion, pneumothorax, cardiomegaly, or pericardial effusion. Atherosclerotic calcification of LAD and left main. No interval change overall in the chest since 03/2019. Centered at the L2-3 level, the smoothly well-circumscribed, low-attenuation, 1.8 x 2.2 x 3.5 cm aort ocaval enlarged lymph node is unchanged (allowing for differences in cursor placement). Cholecystectomy clips. No evidence of liver metastases. No definite pathology identified in the liver (except for perhaps fatty liver), adrenals, kidneys, pancreas, spleen, or urinary bladder (urinary bladder partially obscured by streak artifact from left hip metallic prosthesis). No evidence of mallory c chain, mesenteric, or karey hepatis, lymphadenopathy. Suture line around ascending colon. No colonic diverticulitis, ascites, or pneumoperitoneum. No inter art change overall in abdomen and pelvis since 03/16/2019. IMPRESSION: 1) the approximately 16 mm right upper lobe pulmonary nodule is stable since 03/16/2019 and 08/12/2018, but minimally larger compared to 02/07/2018. 2) the the tiny 4 to 5 mm pulmonary nodules in right middle lobe and left upper lobe, are unchanged s jory 02/07/2018. 3) the enlarged aortocaval retroperitoneal lymph node is unchanged since 08/12/2018. 4) status post right partial colectomy, cholecystectomy, and left total hip replacement arthroplasty. 5) no new lesions
== END 2019-10-20 08:34 | disposition home or self-care (01) ==
LOC: CT 08:33
PROVIDERS: ATTEND Internal Medicine Medical Oncology
DX: C18.2 Malignant neoplasm of ascending colon (principal); C78.02 Secondary malignant neoplasm of left lung; C77.1 Secondary and unspecified malignant neoplasm of intrathoracic lymph nodes; R91.1 Solitary pulmonary nodule; R91.8 Other nonspecific abnormal finding of lung field; Z90.49 Acquired absence of other specified parts of digestive tract
CPT/HCPCS: 71260; 74177; 82565; Q9967

== ENCOUNTER 2020-05-03 08:58 | Outpatient (CLI) | payer MEDICARE, OTHER ==
--- NOTE | 2020-05-03 11:44 | CT ---
CT chest with IV contrast CT abdomen with IV contrast HISTORY: Colon cancer. Metastatic disease. Pulmonary nodules. Restaging. COMPARISON: 01/15/2020. FINDINGS: There is limited contrast opacification, as much of the 60 cc injected contrast infiltrated within the tissues immediately surrounding the implanted port in the left upper chest. Injection site was attended to by nursing personnel, with expression of as much as the contrast from the skin i s possible. Patient was instructed regarding routine protocol for care of an infiltration site. The well-circumscribed soft tissue density nodule within the right upper lobe is 1.7 cm x 1.5 cm x 1. 4 cm greatest diameters, stable. It abuts the superior margin of the minor fissure. A 0.3 cm nodule within the central aspect of the right upper lobe is also stable. There are 3 tiny no dules within the left lower lobe, each no larger than 0.3 cm, that are stable. A 0.5 cm subpleural nodule at the lateral aspect of the left upper lobe is stable in appearance. Calcification within the coronary arteries and other arterial structures. Postoperative changes of th e right colon and gallbladder fossa. Subtle hazy stranding within the anterior central abdominal fat is similar in appearance to the previ ous exam. The lobular low density nodule immediately anterior to the superior pole left kidney is 1.7 cm x 1.4 cm x 1.4 cm greatest diameters, overall stable. Possibly an exophytic renal cyst. The soft tissue density mass with central calcification between the anterior aspect of the abdominal aorta and IVC at the level of the renal vessels is 3.2 cm x 2.0 cm x 1.7 cm greatest diameters, overall stable. No new intra-abdominal masses are evident. A 0.7 cm densely calcified lesion at the right posterolateral aspect of the central spinal canal at t he T11 level is now more conspicuous and has enlarged slowly since the 04/19/2015 study where it was barely perceptible in retrospect. IMPRESSION : Multiple lung nodules and aortocaval soft tissue density mass are stable compared to the prior exam. Slowly enlarging densely calcified lesion within the right posterolateral aspect of the central spina l canal at the T11 level, favored to represent a meningioma. It is still only 0.7 cm greatest diameter and can be followed long-term on CT scan. As on the prior study, there was infiltration of injected contrast material around the left upper rosal[address] st wall implanted port. The Valenzuela needle became dislodged from the port prior to or during injection. For future CT exams, please consider peripheral IV access for contrast injection.
[2020-05-03] MEDS ORDERED: Iopamidol 370 76% 100 ML VIAL ONE (13:19)
== END 2020-05-03 08:59 | disposition home or self-care (01) ==
LOC: CT 08:58
PROVIDERS: ATTEND Internal Medicine Medical Oncology
DX: C18.2 Malignant neoplasm of ascending colon (principal); R91.8 Other nonspecific abnormal finding of lung field; M89.9 Disorder of bone, unspecified
CPT/HCPCS: 71260; 74160; 82565; Q9967

== ENCOUNTER 2021-05-26 09:26 | Outpatient (CLI) | payer MEDICARE, OTHER | END 2021-05-26 09:27 | disposition home or self-care (01) | LOC: CT 09:26 | PROVIDERS: ATTEND Internal Medicine Medical Oncology | DX: C18.2 Malignant neoplasm of ascending colon (principal); R91.8 Other nonspecific abnormal finding of lung field; R93.5 Abnormal findings on diagnostic imaging of other abdominal regions, including retroperitoneum; R59.0 Localized enlarged lymph nodes | CPT/HCPCS: 71260; 74177; 82565 ==

== ENCOUNTER 2021-07-13 08:40 | Outpatient (CLI) | payer MEDICARE, OTHER | END 2021-07-13 08:41 | disposition home or self-care (01) | LOC: NM 08:40 | PROVIDERS: ATTEND Internal Medicine Medical Oncology | DX: M54.50 Low back pain, unspecified (principal); C18.2 Malignant neoplasm of ascending colon; R07.81 Pleurodynia | CPT/HCPCS: 78306; A9503; J1642 ==

== ENCOUNTER 2021-08-11 13:39 | Outpatient (CLI) | payer MEDICARE, OTHER | END 2021-08-11 13:40 | disposition home or self-care (01) | LOC: RAD 13:39 | PROVIDERS: ATTEND Internal Medicine Medical Oncology | DX: Z45.2 Encounter for adjustment and management of vascular access device (principal); T82.598A Other mechanical complication of other cardiac and vascular devices and implants, initial encounter; T82.848A Pain due to vascular prosthetic devices, implants and grafts, initial encounter; R91.1 Solitary pulmonary nodule | CPT/HCPCS: 71045 ==

== ENCOUNTER 2021-11-30 08:54 | Outpatient (CLI) | payer MEDICARE, OTHER ==
[2021-11-30] MEDS ORDERED: Iopamidol 370 76% 100 ML VIAL ONE (15:56)
== END 2021-11-30 08:55 | disposition home or self-care (01) ==
LOC: CT 08:54
PROVIDERS: ATTEND Internal Medicine Medical Oncology
DX: C18.9 Malignant neoplasm of colon, unspecified (principal); R19.8 Other specified symptoms and signs involving the digestive system and abdomen; R91.8 Other nonspecific abnormal finding of lung field; E03.9 Hypothyroidism, unspecified
CPT/HCPCS: 71260; 74177; Q9967

== ENCOUNTER 2022-03-26 09:07 | Outpatient (CLI) | payer MEDICARE, OTHER ==
[2022-03-26] MEDS ORDERED: Iopamidol 370 76% 100 ML VIAL ONE (09:14)
[2022-03-26] MEDS ORDERED: Iopamidol 300 61% 50 ML VIAL FS ONE (09:35)
== END 2022-03-26 09:08 | disposition home or self-care (01) ==
LOC: BICRAD 09:07 → RAD 09:08
PROVIDERS: ATTEND Internal Medicine Medical Oncology
DX: C18.2 Malignant neoplasm of ascending colon (principal); C78.00 Secondary malignant neoplasm of unspecified lung
CPT/HCPCS: 36598; 71260; 74177

== ENCOUNTER 2023-03-15 01:03 | Emergency (ER) | payer MEDICARE, OTHER ==
[2023-03-15] MEDS ORDERED: Digoxin 0.5 MG/2 ML AMP ONE (01:41)
[2023-03-15] MEDS ORDERED: Magnesium 2 GM/50 ML BAG (IN WATER) ONE (01:43)
[2023-03-15 02:01] LABS: #Monocytes 0.7 thou/uL (0.11-0.59); #Neutrophils 4.7 thou/uL (1.40-6.50); %Basophils 0.2 % (0.0-1.0); %Lymphocytes 7.4 % (21.0-51.0); %Monocytes 11.5 % (0.0-10.0); %Neutrophils 80.4 % (42.0-75.0); Hematocrit 34.2 % (36.0-47.0); Hemoglobin 11.5 g/dL (12.0-16.0); Mean Corpuscular HGB CONC 33.6 g/dL (32.0-36.0); Mean Corpuscular Hemoglobin 28.5 pg (27.0-31.0); Mean Corpuscular Volume 84.9 fl (78.0-98.0); Mean Platelet Volume 11.6 fL (7.4-10.4); Platelet Count 180 10x3/uL (130-400); Red Blood Cell (RBC) Count 4.03 mill/uL (4.20-5.40); White Blood Cell (WBC) Count 5.8 10x3/uL (4.8-10.8)
[2023-03-15 02:25] LABS: ALT (SGPT) 60 U/L (8-55); AST (SGOT) 50 U/L (5-34); Albumin 3.7 g/dL (3.4-4.8); Alkaline Phosphatase 65 U/L (40-110); Anion Gap 16 mmol/L (10-20); BUN (Urea Nitrogen) 19 mg/dL (9.8-20.1); Bilirubin, Total 0.6 mg/dL (0.2-1.2); CK (CPK) 332 U/L (29-168); Calc. Creatinine Clearance 0 mL/min (70-130); Calcium 8.5 mg/dL (7.8-10.44); Carbon Dioxide 20 mmol/L (23-31); Chloride 100 mmol/L (98-107); Estimated GFR 57; Globulin 2.4 g/dL (2.4-3.5); Glucose 144 mg/dL (83-110); Lipase 59 U/L (8-78); Potassium 2.7 mmol/L (3.5-5.1); Protein, Total 6.1 g/dL (5.8-8.1); Sodium 133 mmol/L (136-145)
[2023-03-15] MEDS ORDERED: diphenhydrAMINE 50 MG/ML VIAL ONE (02:43)
[2023-03-15] MEDS ORDERED: Famotidine/PF 20 mg/2ml Vial ONE (02:44)
[2023-03-15] MEDS ORDERED: methylPREDNISolone Sod Succ 40 MG VIAL ONE (02:44)
[2023-03-15 03:01] LABS: Troponin I 0.022 ng/mL (< 0.028)
[2023-03-15] MEDS ORDERED: Potassium Chloride 20 MEQ TAB ONE (03:02)
[2023-03-15] MEDS ORDERED: Metoprolol Tartrate 5 MG/5 ML VIAL ONE (04:21)
[2023-03-15 04:28] LABS: Bilirubin Negative (Negative); Blood, Urine Negative (Negative); CAUTI Indications for Culture Fever or rigors; Clarity Clear (Clear); Glucose, Urine (Dipstick) Normal (Negative); Ketone, Urine Negative (Negative); Leukocyte Negative Leu/uL (Negative); Nitrite Negative (Negative); Protein, Urine (Dipstick) Negative (Neg-Trace); RBC/HPF 0-3 HPF (0-3); Specific Gravity, Urine 1.003 (1.002-1.036); Squamous Epithelial None Seen HPF (0-3); Urobilinogen Normal mg/dL (Less than 2); WBC/HPF 0-3 HPF (0-3)
[2023-03-15 04:31] LABS: Bacteria/HPF 1+ HPF (None Seen)
[2023-03-15 04:32] LABS: Urine Culture Reflex No No
[2023-03-15] MEDS ORDERED: LevoFLOXacin 750 mg/D5W 150 ml Premix Bag ONE (06:11)
[2023-03-15] MEDS ORDERED: Iopamidol-370 76% 500 ML MDV (1 ML CHARGE) ONE (12:52)
== END 2023-03-15 09:09 | disposition short-term general hospital (02) ==
LOC: ERS 01:03
DX: I48.20 Chronic atrial fibrillation, unspecified (principal); E87.6 Hypokalemia; J18.9 Pneumonia, unspecified organism; I10 Essential (primary) hypertension
CPT/HCPCS: 36415; 70450; 71045; 71275; 80053; 81001; 82140; 82550; 83605; 83690; 83880; 84443; 84484; 85025; 87040; 93005; 96361; 96365; 96366; 96367; 96372; 96375; J1160; J1200; J1650; J1956; J2920; J3475; Q9967; S0028